=== PATIENT | male | born 1995 | race African-American/Black ===

== ENCOUNTER 2020-09-17 01:12 | Emergency (ER) | payer OTHER ==
[~2020-09-17] VITALS: Ht 180.3 cm; Wt 75.0 kg
[2020-09-17 01:21] VITALS: BP 153/76
== END 2020-09-17 01:35 | disposition home or self-care (01) ==
LOC: ER 01:12
DX: F15.10 Other stimulant abuse, uncomplicated (principal); T14.8XXA Other injury of unspecified body region, initial encounter; X58.XXXA Exposure to other specified factors, initial encounter; Y93.89 Activity, other specified; Y92.89 Other specified places as the place of occurrence of the external cause; Y99.8 Other external cause status
CPT/HCPCS: 99283